=== PATIENT | female | born 1970 | race African-American/Black ===

== ENCOUNTER 2018-10-06 20:01 | Emergency (ER) | payer SELFPAY ==
[~2018-10-06] VITALS: Ht 162.6 cm; Wt 71.0 kg
[2018-10-06 21:26] LABS: CLARITY URINE CLEAR (CLEAR); COLOR URINE DARK YELLOW (YELLOW); KETONES URINE TRACE (NEGATIVE); LEUKOCYTE ESTERASE URINE NEGATIVE (NEGATIVE); NITRITE URINE NEGATIVE (NEGATIVE); OCCULT BLOOD URINE NEGATIVE (NEGATIVE); PH URINE 5.5 (4.5-8.0); PROTEIN URINE NEGATIVE (NEGATIVE); SPECIFIC GRAVITY URINE 1.033 (1.005-1.030)
[2018-10-07 05:13] LABS: PROTHROMBIN TIME 10.2 sec (9.1-11.1)
[2018-10-07 05:18] LABS: CHLORIDE 105 mEq/L (98-107)
[2018-10-07 05:19] LABS: EOSINOPHILS % 2.3 % (0.0-5.0); HEMATOCRIT. 37.3 % (36.0-48.0); HEMOGLOBIN. 12.6 g/dL (12.0-16.0); LYMPHOCYTES % 32.6 % (20.0-50.0); MEAN CORPUSCULAR HEMOGLOBIN 33.2 pg (28.0-32.0); MEAN CORPUSCULAR VOLUME 98.4 fL (81.0-99.0); MEAN PLATELET VOLUME 9.6 fl (7.4-10.4); MONOCYTES % 11.2 % (2.0-8.0); NEUTROPHILS % 52.9 % (40.0-76.0); PLATELET 192 x1000/uL (130-400); RED BLOOD CELL COUNT 3.79 mill/uL (4.2-5.4); RED CELL DISTRIBUTION WIDTH 12.8 % (11.6-14.6)
[2018-10-07 05:38] LABS: *BENZODIAZEPINES SCREEN URINE NEGATIVE (NEGATIVE); *COCAINE SCREEN URINE NEGATIVE (NEGATIVE); METHADONE URINE SCREEN NEGATIVE (NEGATIVE); OPIATES URINE SCREEN NEGATIVE (NEGATIVE); PHENCYCLIDINE URINE SCREEN NEGATIVE (NEGATIVE)
[2018-10-07 05:39] LABS: *AMPHETAMINES SCREEN URINE NEGATIVE (NEGATIVE); *BARBITURATES SCREEN URINE NEGATIVE (NEGATIVE)
[2018-10-07 05:42] LABS: CANNABINOID URINE SCREEN PRESUMTIVE POSITIVE (NEGATIVE)
[2018-10-07] MEDS ORDERED: MORPHINE SULFATE 4 MG/ML CPJ (NOT FOR IM USE) IV ONE (06:30)
[2018-10-07] MEDS ORDERED: SODIUM CHLORIDE 0.9% 1,000 ML IV ONE (06:30)
[2018-10-07] MEDS ORDERED: ONDANSETRON HCL 4MG/2ML INJ IV ONE (06:30)
[2018-10-07 07:00] LABS: HCG SCREEN NEGATIVE
[2018-10-07 09:58] VITALS: BP 106/70
[2018-10-11 04:18] LABS: CHLAMYDIA TRACHOMATIS NAA Negative (Negative); NEISSERIA GONORRHOEAE NAA Negative (Negative)
== END 2018-10-07 10:01 | disposition home or self-care (01) ==
LOC: ER 20:01 → ENRESERV 10-07 05:08 → CANRESERV 10-07 05:08 → ER 10-07 10:01 → CANBEDREQ 10-07 10:59
DX: R10.13 Epigastric pain (principal); R03.0 Elevated blood-pressure reading, without diagnosis of hypertension; F12.90 Cannabis use, unspecified, uncomplicated
CPT/HCPCS: 36415; 74176; 80053; 80305; 81003; 81025; 83690; 84703; 85025; 85610; 87210; 87491; 87591; 96361; 96374; 96375; 99284; J2270; J2405; J7030